=== PATIENT | male | born 1970 | race Caucasian/White ===

== ENCOUNTER 2024-11-29 09:43 | Day surgery (SDC) | payer OTHER ==
[2024-11-29] MEDS: Lactated Ringers 1,000 ML IV SCH (09:59)
[2024-11-29] MEDS ORDERED: Propofol 200 MG/20 ML SDV ONE (11:31)
[2024-11-29] MEDS ORDERED: Midazolam 1 MG/ML 2 ML SDV ONE (11:47)
[2024-11-29] MEDS ORDERED: fentaNYL 100 MCG/2 ML SDV ONE (11:47)
[2024-11-29] MEDS ORDERED: Phenylephrine 1% 10 MG/ML SDV ONE (11:56)
[2024-11-29] MEDS ORDERED: Flumazenil 0.1 MG/ML 5 ML MDV ONE (12:14)
== END 2024-11-29 13:46 | disposition home or self-care (01) ==
LOC: VM.SDS 09:43
PROVIDERS: ATTEND Family Medicine
DX: K57.30 Diverticulosis of large intestine without perforation or abscess without bleeding (principal); F41.8 Other specified anxiety disorders; Z79.899 Other long term (current) drug therapy; Z88.6 Allergy status to analgesic agent
CPT/HCPCS: J2250; J2371; J2704; J3010; J3490; J7120